=== PATIENT | female | born 1975 | race African-American/Black ===

== ENCOUNTER 2016-11-01 20:24 | Emergency (ER) | payer OTHER ==
[~2016-11-01] VITALS: Ht 167.6 cm; Wt 78.0 kg
[~2016-11-01 20:24] MED LIST: Docusate Sod/Senna PO; IBUP600 PO; PERC5TAB12 PO; PREN0.01 PO
[2016-11-01 20:26] VITALS: BP 122/74; PULSE 94; RESP 16; TEMP 100.5; O2SAT 97
[2016-11-02] MEDS ORDERED: ACETAMINOPHEN 325 MG TAB PO ONE (00:15)
[2016-11-02] MEDS ORDERED: SODIUM CHLORIDE 0.9% FLUSH 5 ML FLUSH IVF PRN (00:15)
[2016-11-02] MEDS ORDERED: SODIUM CHLOR 0.9% 1000 ML INJ 1,000 ML IV SCH (00:15)
[2016-11-02] MEDS ORDERED: ONDANSETRON HCL 4 MG/2 ML VIAL IVP ONE (00:15)
--- NOTE | 2016-11-02 00:19 | PD ---
HPI Chief Complaint: Cold / Flu Symptoms Time Seen by Provider: 00:13 Travel History International Travel<30 days: No Contact w/Intl Traveler<30days: No Traveled to known affect area: No History of Present Illness HPI 41-year-old female here for evaluation of fever, cough, generalized malaise. Symptoms of been going on for last 2 days. She states an infant at home had upper respiratory symptoms recently. Cough is productive of greenish sputum. She took some DayQuil earlier today. She feels nauseous but has not vomited. She reports having diffuse chest pains when she coughs. No known history of cardiac disease. No history of DVT or PE. No hemoptysis. No diarrhea. 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 Tamiflu (Oseltamivir Phosphate) 75 Mg Cap 75 Mg PO BID 5 Days Review of Systems Except as stated in HPI: all other systems reviewed are Neg Physical Exam Narrative GENERAL: Well-developed, well-nourished, comfortable, no acute distress. SKIN: Warm and dry. No rash. HEAD: Atraumatic. Normocephalic. EYES: Pupils equal and round. No scleral icterus. No injection or drainage. ENT: Mucous membranes pink and dry. NECK: Trachea midline. No JVD. No nuchal rigidity. CARDIOVASCULAR: Regular rate and rhythm. No murmur appreciated. RESPIRATORY: No accessory muscle use. Clear to auscultation. Breath sounds equal bilaterally. GASTROINTESTINAL: Abdomen soft, non-tender, nondistended. MUSCULOSKELETAL: No obvious deformities. No clubbing. No cyanosis. No edema. NEUROLOGICAL: Awake and alert. No obvious cranial nerve deficits. Motor grossly within normal limits. Normal speech. PSYCHIATRIC: Appropriate mood and affect; insight and judgment normal. Data Data Last Documented VS Vital Signs Date Time Temp Pulse Resp B/P Pulse Ox O2 Delivery O2 Flow Rate FiO2 11/02/16 00:25 93 20 126/77 97 Room Air 11/01/16 20:26 100.5 Orders Complete Blood Count With Diff (11/02/16 00:15) Comprehensive Metabolic Panel (11/02/16 00:15) Act Partial Throm Time (Ptt) (11/02/16 00:15) Prothrombin Time / Inr (Pt) (11/02/16 00:15) Ckmb (Isoenzyme) Profile (11/02/16 00:15) Troponin I (11/02/16 00:15) Influenzae A/B Antigen (11/02/16 00:15) Blood Culture (11/02/16 00:15) Iv Access Insert/Monitor (11/02/16 00:15) Electrocardiogram (11/02/16 00:15) Ecg Monitoring (11/02/16 00:15) Oximetry (11/02/16 00:15) Chest, Single Ap (11/02/16 00:15) Sodium Chloride 0.9% Flush (Ns Flush) (11/02/16 00:15) Beta Hcg (Quant/Titer) (11/02/16 00:15) Ondansetron Inj (Zofran Inj) (11/02/16 00:15) Sodium Chlor 0.9% 1000 Ml Inj (Ns 1000 M (11/02/16 00:15) Acetaminophen (Tylenol) (11/02/16 00:15) Oseltamivir (Tamiflu) (11/02/16 01:30) Azithromycin (Zithromax) (11/02/16 01:30) Labs Laboratory Tests Test 11/02/16 11/02/16 00:30 00:50 White Blood Count 6.4 TH/MM3 Red Blood Count 4.91 MIL/MM3 Hemoglobin 13.0 GM/DL Hematocrit 37.6 % Mean Corpuscular Volume 76.5 FL Mean Corpuscular Hemoglobin 26.4 PG Mean Corpuscular Hemoglobin 34.5 % Concent Red Cell Distribution Width 15.3 % Platelet Count 186 TH/MM3 Mean Platelet Volume 8.8 FL Neutrophils (%) (Auto) 66.3 % Lymphocytes (%) (Auto) 17.0 % Monocytes (%) (Auto) 15.6 % Eosinophils (%) (Auto) 0.6 % Basophils (%) (Auto) 0.5 % Neutrophils # (Auto) 4.3 TH/MM3 Lymphocytes # (Auto) 1.1 TH/MM3 Monocytes # (Auto) 1.0 TH/MM3 Eosinophils # (Auto) 0.0 TH/MM3 Basophils # (Auto) 0.0 TH/MM3 CBC Comment DIFF FINAL Differential Comment Prothrombin Time 11.2 SEC Prothromb Time International 1.0 RATIO Ratio Activated Partial 34.1 SEC Thromboplast Time Sodium Level 139 MEQ/L Potassium Level 3.6 MEQ/L Chloride Level 105 MEQ/L Carbon Dioxide Level 27.5 MEQ/L Anion Gap 7 MEQ/L Blood Urea Nitrogen 9 MG/DL Creatinine 1.24 MG/DL Estimat Glomerular Filtration 57 ML/MIN Rate Random Glucose 91 MG/DL Calcium Level 8.5 MG/DL Total Bilirubin 0.2 MG/DL Aspartate Amino Transf 21 U/L (AST/SGOT) Alanine Aminotransferase 22 U/L (ALT/SGPT) Alkaline Phosphatase 72 U/L Total Creatine Kinase 66 U/L Troponin I LESS THAN 0.02 NG/ML Total Protein 7.8 GM/DL Albumin 3.6 GM/DL Human Chorionic Gonadotropin, LESS THAN 1 Quant MIU/ML MDM Medical Decision Making Medical Screen Exam Complete: Yes Emergency Medical Condition: Yes Interpretation(s) EKG: Sinus, rate 84, normal axis, normal intervals, no acute ischemic normality. Differential Diagnosis Influenza, viral illness, pneumonia, dehydration, electrolyte abnormality Narrative Course Initial vital signs show heart rate 94, blood pressure 122/74, pulse ox 97% on room air, oral temp of 100.5F. Heart rate improved to 81 after a liter of IV fluids and Tylenol. CBC is essentially unremarkable. CMP is remarkable for creatinine 1.24, GFR 57, otherwise unremarkable. Cardiac enzymes are negative. Influenza A positive. Chest x-ray shows mild left lung base atelectasis and/or infiltrate. Patient was made aware of all findings. She is resting comfortably. She is overall well-appearing. She will be started on Tamiflu as well as a Z-Artis for above findings. At this point I believe she is stable for discharge home with outpatient follow-up with her primary care physician this week. She was informed to stay hydrated with plenty of fluids. Fever control by alternating between Tylenol and ibuprofen. She was informed on when to return to the emergency department. She verbalizes understanding and agreement with plan. Diagnosis Primary Impression: Influenza A Referrals: Primary Care Physician 2 days Additional Instructions: Follow-up with your primary care physician this week. Stay hydrated with plenty of fluids. Take medications as prescribed. Return to the emergency department for worsening symptoms or any other concerns. Scripts Azithromycin (Zithromax Z-Artis)250 Mg [id number] Mg PO DIRECTED #1 DSPK Ref 0 500 MG (2 tabs) day 1, then 1 tab days 2-5. Prov:Tannre Perry MD 11/02/16 Oseltamivir (Tamiflu)75 Mg Cap75 Mg PO BID 5 Days Ref 0 Prov:Tanner Perry MD 11/02/16 Disposition: 01 DISCHARGE HOME Condition: Stable Tanner Perry MD Nov 02, 2016 00:19
[2016-11-02 00:25] VITALS: BP 126/77; PULSE 93; RESP 20; O2SAT 97
[2016-11-02 01:04] LABS: AUTOMATED NEUTROPHIL # 4.3 TH/MM3 (1.8-7.7); BASOPHIL % 0.5 % (0.0-2.0); EOSINOPHIL % 0.6 % (0.0-4.0); HEMATOCRIT 37.6 % (35.0-46.0); HEMO FLAGS DIFF FINAL; LYMPHOCYTE # 1.1 TH/MM3 (1.0-4.8); MEAN CELL VOLUME 76.5 FL (80.0-100.0); MEAN CORPUSCULAR HEMOGLOBIN 26.4 PG (27.0-34.0); MEAN CORPUSCULAR HGB CONC 34.5 % (32.0-36.0); MONO % 15.6 % (0.0-8.0); NEUT % 66.3 % (16.0-70.0); PLATELET COUNT 186 TH/MM3 (150-450); RED BLOOD COUNT 4.91 MIL/MM3 (4.00-5.30); RED CELL DISTRIBUTION WIDTH 15.3 % (11.6-17.2); WHITE BLOOD COUNT 6.4 TH/MM3 (4.0-11.0)
[2016-11-02 01:07] LABS: APTT (PATIENT) 34.1 SEC (24.3-30.1); PROTHROMBIN TIME - PATIENT 11.2 SEC (9.8-11.6)
[2016-11-02 01:10] LABS: ALT (GPT) 22 U/L (10-53); ANION GAP 7 MEQ/L (5-15); AST (GOT) 21 U/L (15-37); BICARBONATE 27.5 MEQ/L (21.0-32.0); BLOOD UREA NITROGEN 9 MG/DL (7-18); CHLORIDE 105 MEQ/L (98-107); GLOMERULAR FILTRATION RATE 57 ML/MIN (>89); POTASSIUM 3.6 MEQ/L (3.5-5.1); SODIUM (NA) 139 MEQ/L (136-145)
--- NOTE | 2016-11-02 01:13 | RADRPT ---
EXAM DATE/TIME: 11/02/2016 00:22 [facility] COMPARISON: No previous studies available for comparison. INDICATIONS : Pt short of breath with cough. MEDICAL HISTORY : None. SURGICAL HISTORY : None. ENCOUNTER: Initial ACUITY: 1 day PAIN SCORE: 6/10 LOCATION: Bilateral chest FINDINGS: Mild left lung base atelectasis and/or infiltrate is seen. Heart and mediastinum are unremarkable for technique. CONCLUSION: Mild left lung base atelectasis and/or infiltrate is seen. Mckenzie Felix MD on November 02, 2016 at 1:11 Board Certified Radiologist. This report was verified electronically.
[2016-11-02 01:14] LABS: ALKALINE PHOSPHATASE 72 U/L (45-117); BETA HCG QUANT LESS THAN 1 MIU/ML (0-5); TOTAL BILIRUBIN ADULT 0.2 MG/DL (0.2-1.0)
[2016-11-02 01:16] LABS: CREATINE KINASE 66 U/L (26-192)
[2016-11-02] MEDS ORDERED: ZITHTAB PO (01:24)
[2016-11-02] MEDS ORDERED: OSEL75 PO (01:24)
[2016-11-02] MEDS ORDERED: OSELTAMIVIR PHOSPHATE 75 MG CAP PO ONE (01:30)
[2016-11-02] MEDS ORDERED: AZITHROMYCIN 250 MG TAB PO ONE (01:30)
[2016-11-02 02:11] VITALS: BP 111/69
--- NOTE | 2016-11-02 22:44 | EKG ---
Date Performed: 11/01/2016 Time Performed: 23:34:12 PTAGE: 41 years EKG: Sinus rhythm NORMAL ECG PREVIOUS TRACING : 05/01/2001 00.42 DOCTOR: Shahida Su Interpretating Date/Time 11/02/2016 22:42:17
== END 2016-11-02 02:32 | disposition home or self-care (01) ==
LOC: NEPE 20:24
DX: J10.1 Influenza due to other identified influenza virus with other respiratory manifestations (principal); R07.9 Chest pain, unspecified
CPT/HCPCS: 71010; 80053; 82550; 84484; 84702; 85025; 85610; 85730; 87040; 87804; 93005; 96361; 96374; 99284; J2405; J7030

== ENCOUNTER 2017-09-28 09:04 | Emergency (ER) | payer OTHER ==
[2017-09-28] VITALS (7 sets, daily range): BP systolic 103–153; BP diastolic 51–83; PULSE 97–108; RESP 16; TEMP 99.3–101.1; O2SAT 97–100
[~2017-09-28 09:04] MED LIST changes: -Docusate Sod/Senna PO; -IBUP600 PO; +OSEL75 PO; -PERC5TAB12 PO; -PREN0.01 PO; +ZITHTAB PO
[2017-09-28] MEDS ORDERED: SODIUM CHLORIDE 0.9% FLUSH 10 ML FLUSH IVF PRN (09:15)
--- NOTE | 2017-09-28 09:18 | PD ---
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 She denies any fevers, shortness of breath, vomiting, abdominal pain, or any other symptoms. She states this seems to have started on its own. Modifying Factors: Worse with movement Associated Signs & Symptoms: Substernal chest pain Risk Factors: Pharyngitis PFSH Past Medical History Cardiovascular Problems: No Diabetes: Yes (GLASSES) Diminished Hearing: No Endocrine: No Gastrointestinal Disorders: Yes (ESOPHAGEAL DILATATION) Genitourinary: No Hepatitis: No Hiatal Hernia: No Hypertension: Yes (DURING ) Immune Disorder: No Musculoskeletal: No Neurologic: No Psychiatric: No Reproductive: No Respiratory: No Thyroid Disease: No Tetanus Vaccination: < 5 Years Influenza Vaccination: Yes ?: Not LMP: 09/10/17 : 2 Para: 1 Past Surgical History Gynecologic Surgery: Yes (C SECTION) Joint Replacement: No Pacemaker: No 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 Tamiflu (Oseltamivir Phosphate) 75 Mg Cap 75 Mg PO BID 5 Days Review of Systems Except as stated in HPI: all other systems reviewed are Neg Physical Exam Narrative GENERAL: Well-developed middle age -[place] female patient currently mild distress. Awake and oriented 3. SKIN: Focused skin assessment warm/dry. HEAD: Atraumatic. Normocephalic. EYES: Pupils equal and round. No scleral icterus. No injection or drainage. ENT: No nasal bleeding or discharge. Mucous membranes pink and moist. NECK: Trachea midline. No JVD. CARDIOVASCULAR: Regular rate and rhythm. No murmur appreciated. CHEST: Tender to palpation of the sternal and parasternal areas without deformity or crepitance. No retractions or use of accessory muscles. RESPIRATORY: No accessory muscle use. Clear to auscultation. Breath sounds equal bilaterally. GASTROINTESTINAL: Abdomen soft, non-tender, nondistended. Hepatic and splenic margins not palpable. MUSCULOSKELETAL: No obvious deformities. No clubbing. No cyanosis. No edema. NEUROLOGICAL: Awake and alert. No obvious cranial nerve deficits. Motor grossly within normal limits. Normal speech. PSYCHIATRIC: Appropriate mood and affect; insight and judgment normal. Data Data Last Documented VS Vital Signs Date Time Temp Pulse Resp B/P (MAP) Pulse Ox O2 Delivery O2 Flow Rate FiO2 09/28/17 10:54 101.1 108 16 126/67 (86) 100 Nasal Cannula 2.00 Orders Orders Electrocardiogram (09/28/17 09:14) Ckmb (Isoenzyme) Profile (09/28/17 09:14) Complete Blood Count With Diff (09/28/17 09:14) Comprehensive Metabolic Panel (09/28/17 09:14) Magnesium (Mg) (09/28/17 09:14) Prothrombin Time / Inr (Pt) (09/28/17 09:14) Act Partial Throm Time (Ptt) (09/28/17 09:14) Troponin I (09/28/17 09:14) Lipase (09/28/17 09:14) Chest, Single Ap (09/28/17 09:14) Ecg Monitoring (09/28/17 09:14) Bilateral Bp Monitoring (09/28/17 09:14) Iv Access Insert/Monitor (09/28/17 09:14) Oximetry (09/28/17 09:14) Oxygen Administration (09/28/17 09:14) Sodium Chloride 0.9% Flush (Ns Flush) (09/28/17 09:15) Blood Culture (09/28/17 09:59) Lactic Acid Sepsis Protocol (09/28/17 09:59) Sodium Chlor 0.9% 1000 Ml Inj (Ns 1000 M (09/28/17 10:00) Acetaminophen (Tylenol) (09/28/17 10:00) Ceftriaxone Inj (Rocephin Inj) (09/28/17 10:00) Azithromycin Inj (Zithromax Inj) (09/28/17 10:00) Ed Discharge Order (09/28/17 11:34) Labs Laboratory Tests Test 09/28/17 09:15 09/28/17 10:10 White Blood Count 19.4 TH/MM3 Red Blood Count 5.07 MIL/MM3 Hemoglobin 13.1 GM/DL Hematocrit 39.3 % Mean Corpuscular Volume 77.5 FL Mean Corpuscular Hemoglobin 25.8 PG Mean Corpuscular Hemoglobin Concent 33.3 % Red Cell Distribution Width 14.5 % Platelet Count 253 TH/MM3 Mean Platelet Volume 8.5 FL Neutrophils (%) (Auto) 83.4 % Lymphocytes (%) (Auto) 6.3 % Monocytes (%) (Auto) 9.0 % Eosinophils (%) (Auto) 0.3 % Basophils (%) (Auto) 1.0 % Neutrophils # (Auto) 16.1 TH/MM3 Lymphocytes # (Auto) 1.2 TH/MM3 Monocytes # (Auto) 1.7 TH/MM3 Eosinophils # (Auto) 0.1 TH/MM3 Basophils # (Auto) 0.2 TH/MM3 CBC Comment AUTO DIFF Differential Comment AUTO DIFF CONFIRMED Prothrombin Time 10.3 SEC Prothromb Time International Ratio 1.0 RATIO Activated Partial Thromboplast Time 21.9 SEC Blood Urea Nitrogen 8 MG/DL Creatinine 1.20 MG/DL Random Glucose 88 MG/DL Total Protein 8.8 GM/DL Albumin 3.2 GM/DL Calcium Level 9.0 MG/DL Magnesium Level 2.1 MG/DL Alkaline Phosphatase 140 U/L Aspartate Amino Transf (AST/SGOT) 40 U/L Alanine Aminotransferase (ALT/SGPT) 32 U/L Total Bilirubin 0.9 MG/DL Sodium Level 134 MEQ/L Potassium Level 4.1 MEQ/L Chloride Level 99 MEQ/L Carbon Dioxide Level 25.6 MEQ/L Anion Gap 9 MEQ/L Estimat Glomerular Filtration Rate 59 ML/MIN Total Creatine Kinase 99 U/L Troponin I LESS THAN 0.02 NG/ML Lipase 152 U/L Lactic Acid Level 1.3 mmol/L MDM Medical Decision Making Medical Screen Exam Complete: Yes Emergency Medical Condition: Yes Medical Record Reviewed: Yes Interpretation(s) EKG shows sinus tachycardia at a rate of 100 bpm with no signs of acute ST-T changes. Laboratory Tests Test 09/28/17 09:15 09/28/17 10:10 White Blood Count 19.4 TH/MM3 (4.0-11.0) Mean Corpuscular Volume 77.5 FL (80.0-100.0) Mean Corpuscular Hemoglobin 25.8 PG (27.0-34.0) Neutrophils (%) (Auto) 83.4 % (16.0-70.0) Lymphocytes (%) (Auto) 6.3 % (9.0-44.0) Monocytes (%) (Auto) 9.0 % (0.0-8.0) Neutrophils # (Auto) 16.1 TH/MM3 (1.8-7.7) Monocytes # (Auto) 1.7 TH/MM3 (0-0.9) Activated Partial Thromboplast Time 21.9 SEC (24.3-30.1) Creatinine 1.20 MG/DL (0.50-1.00) Total Protein 8.8 GM/DL (6.4-8.2) Albumin 3.2 GM/DL (3.4-5.0) Alkaline Phosphatase 140 U/L (45-117) Aspartate Amino Transf (AST/SGOT) 40 U/L (15-37) Sodium Level 134 MEQ/L (136-145) Estimat Glomerular Filtration Rate 59 ML/MIN (>89) Troponin I LESS THAN 0.02 NG/ML Last 24 hours Impressions Chest X-Ray 09/28/17 0914 Signed Impressions: Service Date/Time: Thursday, September 28, 2017 09:21 - CONCLUSION: 1. Mild cardiomegaly. 2. Minimal central pulmonary vascular congestion Tommy Mejia MD Differential Diagnosis Chest pains: Costochondritis versus pleurisy versus pneumonia versus pericarditis versus ACS Narrative Course Patient with fevers, coughing, chest discomfort with initial chest x-ray which was not remarkable for lobar pneumonia. However, she may have some underlying bronchitis and developing atypical pneumonia considering symptoms. Vital signs are stable in the ER. She was given IV fluids and initial IV antibiotics. Lactate is not significantly elevated although she does have leukocytosis. On reevaluation at 11:30 AM, she reports feeling some improvement. She has no tachypnea, saturations are 97% on room air. My plan would be to treat her with antibiotics for pneumonia and have her follow-up closely with primary care doctor. She needs to return for any worsening in symptoms. The plan was discussed with her and she states understanding. Diagnosis Primary Impression: Chest pain Additional Impression: Pneumonia Med/Other Pt SpecificInfo: Prescription(s) given Scripts Azithromycin (Zithromax Z-Artis) 250 Mg Dspk 250 MG PO DIRECTED for Infection, #1 DSPK 0 Refills 500 MG (2 tabs) day 1, then 1 tab days 2-5. Prov: Colton Diaz MD 09/28/17 Disposition: 01 DISCHARGE HOME Condition: Stable Colton Diaz MD Sep 28, 2017 09:18
[2017-09-28 09:28] LABS: AUTOMATED NEUTROPHIL # 16.1 TH/MM3 (1.8-7.7); BASOPHIL # 0.2 TH/MM3 (0-0.2); EOSINOPHIL # 0.1 TH/MM3 (0-0.4); EOSINOPHIL % 0.3 % (0.0-4.0); HEMATOCRIT 39.3 % (35.0-46.0); HEMOGLOBIN 13.1 GM/DL (11.6-15.3); LYMPH % 6.3 % (9.0-44.0); LYMPHOCYTE # 1.2 TH/MM3 (1.0-4.8); MEAN CELL VOLUME 77.5 FL (80.0-100.0); MEAN CORPUSCULAR HEMOGLOBIN 25.8 PG (27.0-34.0); MEAN CORPUSCULAR HGB CONC 33.3 % (32.0-36.0); MEAN PLATELET VOLUME 8.5 FL (7.0-11.0); MONOCYTE # 1.7 TH/MM3 (0-0.9); NEUT % 83.4 % (16.0-70.0); PLATELET COUNT 253 TH/MM3 (150-450); RED BLOOD COUNT 5.07 MIL/MM3 (4.00-5.30); RED CELL DISTRIBUTION WIDTH 14.5 % (11.6-17.2); WHITE BLOOD COUNT 19.4 TH/MM3 (4.0-11.0)
--- NOTE | 2017-09-28 09:33 | RADRPT ---
EXAM DATE/TIME: 09/28/2017 09:21 [facility] COMPARISON: CHEST SINGLE AP, November 02, 2016, 0:22. INDICATIONS : Onset of severe chest pain MEDICAL HISTORY : None. SURGICAL HISTORY : None. ENCOUNTER: Initial ACUITY: 1 day PAIN SCORE: 10/10 LOCATION: Bilateral chest FINDINGS: There is a poor inspiratory result. The heart is mildly prominent. Minimal central pulmonary vascular congestion is likely. No focal alveolar consolidation is noted. CONCLUSION: 1. Mild cardiomegaly. 2. Minimal central pulmonary vascular congestion Tommy Mejia MD on September 28, 2017 at 9:29 Board Certified Radiologist. This report was verified electronically.
[2017-09-28 09:47] LABS: PROTHROMBIN TIME - PATIENT 10.3 SEC (9.8-11.6)
[2017-09-28 09:59] LABS: ALBUMIN 3.2 GM/DL (3.4-5.0); CHLORIDE 99 MEQ/L (98-107); LIPASE 152 U/L (73-393); SODIUM (NA) 134 MEQ/L (136-145)
[2017-09-28 10:00] LABS: BICARBONATE 25.6 MEQ/L (21.0-32.0); BLOOD UREA NITROGEN 8 MG/DL (7-18); GLUCOSE,RANDOM 88 MG/DL (74-106); MAGNESIUM 2.1 MG/DL (1.5-2.5)
[2017-09-28] MEDS ORDERED: cefTRIAXone INJ 1,000 MG in SODIUM CHLORIDE 0.9% INJ 100 ML IV ONE (10:00)
[2017-09-28] MEDS ORDERED: SODIUM CHLOR 0.9% 1000 ML INJ 1,000 ML IV ONE (10:00)
[2017-09-28] MEDS ORDERED: ACETAMINOPHEN 500 MG CPLT PO ONE (10:00)
[2017-09-28] MEDS ORDERED: AZITHROMYCIN INJ 500 MG in SODIUM CHLOR 0.9% 250 ML INJ 250 ML IV ONE (10:00)
[2017-09-28 10:02] LABS: ALT (GPT) 32 U/L (10-53); AST (GOT) 40 U/L (15-37); GLOMERULAR FILTRATION RATE 59 ML/MIN (>89)
[2017-09-28 10:04] LABS: TOTAL BILIRUBIN ADULT 0.9 MG/DL (0.2-1.0); TOTAL PROTEIN 8.8 GM/DL (6.4-8.2)
[2017-09-28 10:05] LABS: ALKALINE PHOSPHATASE 140 U/L (45-117)
[2017-09-28 10:08] LABS: TROPONIN I LESS THAN 0.02 NG/ML (0.02-0.05)
[2017-09-28] MEDS ORDERED: ZITHTAB PO (11:43)
--- NOTE | 2017-09-28 15:46 | EKG ---
Date Performed: 09/28/2017 Time Performed: 09:07:37 PTAGE: 42 years EKG: SINUS TACHYCARDIA ABNORMAL RHYTHM ECG PREVIOUS TRACING : 11/01/2016 23.34 No significant change from previous tracing noted. DOCTOR: Fredrick Fox Interpretating Date/Time 09/28/2017 15:45:35
== END 2017-09-28 12:47 | disposition home or self-care (01) ==
LOC: PHED 09:04
DX: R07.9 Chest pain, unspecified (principal); J18.9 Pneumonia, unspecified organism; R94.31 Abnormal electrocardiogram [ECG] [EKG]; E11.9 Type 2 diabetes mellitus without complications
CPT/HCPCS: 71010; 80053; 82550; 83605; 83690; 83735; 84484; 85025; 85610; 85730; 87040; 93005; 96365; 96368; 99285; J0456; J0696; J7030; J7050